=== PATIENT | female | born 1955 | race Caucasian/White ===

== ENCOUNTER → 2021-02-20 | Outpatient (CLI) | payer OTHER ==
[~2021-02-20] MED LIST: CRESTOR10 MG PO; DOCUSATE SODIU100 MG PO; DRONABINOL5 MG PO; GAS-X125 MG PO; K-DUR TAB 10 M10 MEQ PO; LEVOTHYROXINE25 MCG PO; OMEPRAZOLE20 MG PO; ONDANSETRON HCL8 MG PO; PEPCID20 MG PO; PHENERGAN 25 MG25 M1 PO; POTASSIUM CHLO10 MEQ PO; PROTONIX 40 MG40 M1 PO; ROXICODONE5 MG PO
== END ==
LOC: EXRD 09:14
DX: R10.9 Unspecified abdominal pain (principal); K82.8 Other specified diseases of gallbladder; K76.89 Other specified diseases of liver
CPT/HCPCS: 76705

== ENCOUNTER → 2021-02-23 | Outpatient (CLI) | payer OTHER | LOC: CT 12:43 | DX: R93.2 Abnormal findings on diagnostic imaging of liver and biliary tract (principal); K76.9 Liver disease, unspecified | CPT/HCPCS: 36415; 82565; Q9967 ==

== ENCOUNTER 2021-04-10 02:06 | Inpatient (IN) | payer OTHER ==
[~2021-04-10] VITALS: Ht 165.1 cm; Wt 90.3 kg
[2021-04-10 02:41] LABS: HEMOGLOBIN 11.9 gm/dl (12.3-15.3); RED BLOOD COUNT 3.99 M/UL (4.00-5.10); WHITE BLOOD COUNT 26.8 K/UL (4.5-11.0)
[2021-04-10 03:21] LABS: BUN/CREATININE RATIO 41 (0-10)
[2021-04-10 13:03] LABS: HEMOGLOBIN 10.6 gm/dl (12.3-15.3); WHITE BLOOD COUNT 22.1 K/UL (4.5-11.0)
[2021-04-10 13:05] LABS: RED BLOOD COUNT 3.56 M/UL (4.00-5.10)
[2021-04-11] MEDS ORDERED: LEVOTHYROXINE25 MCG PO (05:22)
[2021-04-11] MEDS ORDERED: DRONABINOL5 MG PO (05:22)
[2021-04-11] MEDS ORDERED: PHENERGAN 25 MG25 M1 PO (05:23)
[2021-04-11 09:35] LABS: HEMOGLOBIN 10.9 gm/dl (12.3-15.3); RED BLOOD COUNT 3.67 M/UL (4.00-5.10); WHITE BLOOD COUNT 21.7 K/UL (4.5-11.0)
[2021-04-11] MEDS ORDERED: CRESTOR10 MG PO (15:12)
[2021-04-12 03:16] LABS: HEMOGLOBIN 11.4 gm/dl (12.3-15.3); RED BLOOD COUNT 3.85 M/UL (4.00-5.10); WHITE BLOOD COUNT 22.1 K/UL (4.5-11.0)
[2021-04-12] MEDS ORDERED: DRONABINOL5 MG PO (14:59)
[2021-04-12] MEDS ORDERED: PHENERGAN 25 MG25 M1 PO (15:00)
[2021-04-12] MEDS ORDERED: ONDANSETRON HCL8 MG PO (15:02)
[2021-04-12] MEDS ORDERED: OMEPRAZOLE20 MG PO (15:05)
[2021-04-13 03:52] LABS: HEMOGLOBIN 11.5 gm/dl (12.3-15.3); RED BLOOD COUNT 3.84 M/UL (4.00-5.10); WHITE BLOOD COUNT 24.8 K/UL (4.5-11.0)
--- NOTE | 2021-04-13 19:18 | NUR ---
HAS BEEN NOTIFIED OF CRITICAL LACTIC ACID OF 25.2.
--- NOTE | 2021-04-13 22:41 | NUR ---
NOTIFIED OF CRITICAL LACTIC ACID LAB 24.2.
[2021-04-14 01:57] LABS: HEMOGLOBIN 10.9 gm/dl (12.3-15.3); RED BLOOD COUNT 3.63 M/UL (4.00-5.10); WHITE BLOOD COUNT 22.5 K/UL (4.5-11.0)
--- NOTE | 2021-04-14 06:15 | NUR ---
NOTIFIED OF LACTIC ACID 22.9.
--- NOTE | 2021-04-14 23:30 | NUR ---
NOTIFIED OF LACTIC ACID 21.0
[2021-04-15 03:47] LABS: HEMOGLOBIN 10.7 gm/dl (12.3-15.3); RED BLOOD COUNT 3.56 M/UL (4.00-5.10); WHITE BLOOD COUNT 18.8 K/UL (4.5-11.0)
--- NOTE | 2021-04-15 04:13 | NUR ---
NOTIFIED OF CRITICAL LACTIC ACID OF 22.1.
[2021-04-15 11:44] LABS: HEMOGLOBIN 10.9 gm/dl (12.3-15.3); RED BLOOD COUNT 3.63 M/UL (4.00-5.10); WHITE BLOOD COUNT 21.9 K/UL (4.5-11.0)
--- NOTE | 2021-04-15 19:13 | NUR ---
LAB CALLED WITH A CRITICAL LACTIC ACID, DR. MALDONADO REPORTED AT 1115 THAT NO FURTHER ATTENTION IS NEEDED. LAB CALLED AGAIN WITH A CRITICAL LACTIC ACID AT [address] MALDONADO AND LEFT A MESSAGE. NO RESPONSE. LAB CALLED AGAIN AT 1912 WITH A CRITICAL LACTIC ACID OF 26.4. CALLED DR. MALDONADO AND NO FURTHER ACTION IS NEEDED SHE STATES THAT THIS LEVEL IS DUE LIKELY TO HER LIVER AND MAY NOT GET BETTER. WILL CONTINUE TO MONITOR.
[2021-04-16 03:34] LABS: HEMOGLOBIN 10.6 gm/dl (12.3-15.3); RED BLOOD COUNT 3.52 M/UL (4.00-5.10); WHITE BLOOD COUNT 16.9 K/UL (4.5-11.0)
[2021-04-16 04:14] LABS: BUN/CREATININE RATIO 48 (0-10)
[2021-04-16] MEDS ORDERED: POTASSIUM CHLO10 MEQ PO (09:42)
[2021-04-16] MEDS ORDERED: PEPCID20 MG PO (09:42)
--- NOTE | 2021-04-16 13:47 | NUR ---
CALLED REPORT TO [facility] TO [facility] AT THIS TIME PT IS GETTING DRESSED AND READY TO GO HOME WITH FAMILY PRIVATE CAR. APPTS AND BMP IN 2 DAYS TOLD TO PEGGY ALSO 6 SMALL MEALS A DAY WITH ENSURE TID , INSTRUCTED TO PATIENT AND FAMLIY.
== END 2021-04-16 14:24 | disposition home health service (06) | DRG 435 ==
LOC: ER1 02:06 → CDU 17:31 → M/S 17:31
PROVIDERS: Emergency Medicine; Surgery; Urology; ADMIT Family Medicine
PROC: 0DHA4UZ Insertion of Feeding Device into Jejunum, Percutaneous Endoscopic Approach (ICD-10-PCS; principal; 2021-04-12 16:44)
DX: C23 Malignant neoplasm of gallbladder (principal); A41.9 Sepsis, unspecified organism; K31.1 Adult hypertrophic pyloric stenosis; C79.81 Secondary malignant neoplasm of breast; N17.9 Acute kidney failure, unspecified; E87.3 Alkalosis; E87.2 Acidosis; E44.0 Moderate protein-calorie malnutrition; R64 Cachexia; E87.1 Hypo-osmolality and hyponatremia; Z68.1 Body mass index [BMI] 19.9 or less, adult; K82.9 Disease of gallbladder, unspecified; C50.919 Malignant neoplasm of unspecified site of unspecified female breast; R11.2 Nausea with vomiting, unspecified; R62.7 Adult failure to thrive; D72.829 Elevated white blood cell count, unspecified; R55 Syncope and collapse; E86.0 Dehydration; R74.01 Elevation of levels of liver transaminase levels; E87.6 Hypokalemia; E83.51 Hypocalcemia; D64.9 Anemia, unspecified; Z84.89 Family history of other specified conditions; Z80.9 Family history of malignant neoplasm, unspecified
CPT/HCPCS: 0240U; 36415; 71045; 80048; 80053; 82550; 82553; 83605; 83690; 83735; 83874; 83880; 84100; 84132; 84484; 85025; 86140; 86300; 87040; 93005; 96365; 96366; 96367; 96375; 96376; 97110-GP-CQ; 97116-GP-CQ; 97162; 97166; 97530-GP-CQ; 99285; C9113; G0378; J0610; J1100; J1642; J1650; J2001; J2270; J2405; J2543; J2550; J2704; J2710; J3010; J3480; J7030; J7120

== ENCOUNTER 2021-04-22 22:15 | Inpatient (IN) | payer OTHER ==
[~2021-04-22] VITALS: Ht 152.4 cm; Wt 98.4 kg
[~2021-04-22 22:15] MED LIST changes: -DOCUSATE SODIU100 MG PO; -GAS-X125 MG PO; -K-DUR TAB 10 M10 MEQ PO; -PROTONIX 40 MG40 M1 PO; -ROXICODONE5 MG PO
[2021-04-22 23:27] LABS: BUN/CREATININE RATIO 52 (0-10)
[2021-04-23 00:03] LABS: RED BLOOD COUNT 3.66 M/UL (4.00-5.10)
[2021-04-23 04:31] LABS: HEMOGLOBIN 10.9 gm/dl (12.3-15.3); RED BLOOD COUNT 3.58 M/UL (4.00-5.10)
[2021-04-23 05:13] LABS: BUN/CREATININE RATIO 54 (0-10)
[2021-04-23] MEDS ORDERED: PROTONIX 40 MG40 M1 PO (11:50)
[2021-04-23] MEDS ORDERED: ROXICODONE5 MG PO (11:50)
[2021-04-23] MEDS ORDERED: K-DUR TAB 10 M10 MEQ PO (11:51)
[2021-04-23] MEDS ORDERED: DOCUSATE SODIU100 MG PO (11:51)
[2021-04-23] MEDS ORDERED: GAS-X125 MG PO (11:52)
--- NOTE | 2021-04-23 20:00 | NUR ---
RN NOTED THAT ORDER FOR COMFORT CARE MEASURES WAS UNVERIFIED. RN CALLED DR. FLETCHER. MD INSTRUCTED RN TO ALLOW PATIENT PRN ATIVAN AND DILAUDID, DISCONTINUE ALL LAB DRAWS, VITAL SIGNS, AND ACCU CHECKS. RN ENTERED ORDERS AND PLACED PAPER DOCUMENTATION IN PATIENT CHART. FINE PATCHER FELISHA MADE AWARE.
--- NOTE | 2021-04-24 16:42 | NUR ---
ORAL CARE DONE WITH MAGIC MOUTHWASH AND WATER USING STICK AND SPONGE APPLICATORS AND SWABS. EDUCATED AND DEMONSTRATED TO FAMILY. COURTESY CART ORDERED AND DELIVERED FOR FAMILY.
--- NOTE | 2021-04-24 18:13 | NUR ---
PATIENTS FAMILY DIDN'T WANT ALFREDO CATHERTER PLACED. PATIENT ON COMFORT MEASURE AND PURE WHICK IS IN PLACE. PATIENT HAS PASSED SCANT AMOUNT OF YONATHAN COLORED URINE IN 12 HOURS AND THE FAMILY FEELS CATHETER PLACEMENT IN UNECESSARY.
--- NOTE | 2021-04-24 19:50 | NUR ---
SEDA'S FAMILY MEMBER APPROACHED RN AND STATED THAT THEY THOUGHT THE PATIENT HAD "TAKEN HER LAST BREATH." RN CALLED RESOURCE NURSE, KAYLAN, BOTH RN'S AUSCULTATED LUNG AND HEART SOUNDS AND DECLARED PATIENT AT 199904/24/21. FAMILY AT BEDSIDE, ALLOWING TIME FOR GRIEF. FAMILY STATED THEY WOULD CALL THE PATIENT'S SON AND DAUGHTER IN [place] WHO WILL TELL RN WHAT HOME IS PREFFERED ON ARRIVAL. DR. MAN AND ENGINEERING MGR, CHARLY MADE AWARE. ALONDRA NOTIFIED.
--- NOTE | 2021-04-24 20:45 | NUR ---
RN CALLED [facility] AT REQUEST OF FAMILY.
--- NOTE | 2021-04-24 22:15 | NUR ---
[facility] TRANSPORTED PATIENT VIA STRETCHER OUT OF FACILITY. FAMILY, TRANSPLANT IMMUNOLOGIST, AND MD AWARE.
== END 2021-04-24 20:00 | disposition expired | DRG 871 ==
LOC: ER1 22:15 → CDU 04-23 02:09 → MED SURG 4 04-23 14:10
PROVIDERS: Emergency Medicine; ADMIT Internal Medicine
DX: A41.9 Sepsis, unspecified organism (principal); K63.1 Perforation of intestine (nontraumatic); E43 Unspecified severe protein-calorie malnutrition; D61.810 Antineoplastic chemotherapy induced pancytopenia; Z20.822 Contact with and (suspected) exposure to COVID-19; Z66 Do not resuscitate; Z51.5 Encounter for palliative care; E88.3 Tumor lysis syndrome; J18.9 Pneumonia, unspecified organism; K55.052 Diffuse acute (reversible) ischemia of intestine, part unspecified; C78.7 Secondary malignant neoplasm of liver and intrahepatic bile duct; C78.89 Secondary malignant neoplasm of other digestive organs; K31.1 Adult hypertrophic pyloric stenosis; J98.11 Atelectasis; E87.2 Acidosis; N17.9 Acute kidney failure, unspecified; D84.9 Immunodeficiency, unspecified; R65.20 Severe sepsis without septic shock; K21.00 Gastro-esophageal reflux disease with esophagitis, without bleeding; E86.0 Dehydration; R62.7 Adult failure to thrive; G89.29 Other chronic pain; K29.70 Gastritis, unspecified, without bleeding; C80.1 Malignant (primary) neoplasm, unspecified; D69.59 Other secondary thrombocytopenia; T45.1X5A Adverse effect of antineoplastic and immunosuppressive drugs, initial encounter; Z93.1 Gastrostomy status; Z80.9 Family history of malignant neoplasm, unspecified; Z68.36 Body mass index [BMI] 36.0-36.9, adult
CPT/HCPCS: 0240U; 71045; 80048; 80053; 82550; 82553; 83605; 83690; 83735; 83874; 84100; 84439; 84443; 84484; 84550; 85025; 86140; 86850; 86900; 86901; 87040; 93005; 96374; 96376; 99285; C9113; J0692; J1170; J2060; J2185; J2405; J3370; J7030; J7120; P9047